=== PATIENT | male | born 1975 | race Caucasian/White ===

== ENCOUNTER 2016-09-02 10:44 | Emergency (ER) | payer SELFPAY ==
[~2016-09-02] VITALS: Ht 175.3 cm; Wt 91.0 kg
[~2016-09-02 10:44] MED LIST: HYDR-3533 PO; NAPR500 PO; Z.0.NO CURRENT MEDS
[2016-09-02 10:51] VITALS: BP 147/97; PULSE 90; RESP 16; TEMP 98.2; O2SAT 98
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
[2016-09-02] MEDS ORDERED: CEPH250C PO (11:56)
[2016-09-02] MEDS ORDERED: BACT800T5 PO (11:56)
== END 2016-09-02 12:17 | disposition home or self-care (01) ==
LOC: PHEFT 10:44
DX: S01.511A Laceration without foreign body of lip, initial encounter (principal); S51.812A Laceration without foreign body of left forearm, initial encounter; S51.811A Laceration without foreign body of right forearm, initial encounter; S81.812A Laceration without foreign body, left lower leg, initial encounter; F17.200 Nicotine dependence, unspecified, uncomplicated; V18.4XXA Pedal cycle driver injured in noncollision transport accident in traffic accident, initial encounter; Z88.0 Allergy status to penicillin
CPT/HCPCS: 99284